=== PATIENT | female | born 1995 | race American Indian/Alaskan Native ===

== ENCOUNTER 2018-11-10 10:31 | Day surgery (SDC) | payer BC, OTHER ==
[2018-11-10] MEDS ORDERED: LACTATED RINGERS 1,000 ML ONE (11:47)
[2018-11-10 11:54] LABS: Hematocrit 22.8 % (30.3-42.9); Hemoglobin 7.3 gm/dl (10.1-14.3)
[2018-11-10] MEDS ORDERED: LACTATED RINGERS 1,000 ML IV SCH (12:00)
--- NOTE | 2018-11-10 12:20 | Anesthesia Consultation ---
Anesthesia Consult and Med Hx Date of service: 11/10/18 - Airway Anesthetic Teeth Evaluation: Good ROM Head & Neck: Adequate Mental/Hyoid Distance: Adequate Mallampati Class: Class II Intubation Access Assessment: Good - Pulmonary Exam CTA: Yes - Cardiac Exam Cardiac Exam: RRR - Pre-Operative Health Status ASA Pre-Surgery Classification: ASA2 Proposed Anesthetic Plan: General (Patient with Hb of 7.3 D/W Dr Cheatham - will type and screen and decide on transfusion PRN) - Central Nervous System Hx Psychiatric Problems: No - Hematic Hx Anemia: Yes - Other Systems Hx Alcohol Use: Yes (Occas) Hx Cancer: No
[2018-11-10] MEDS ORDERED: DILAUDID IV PRN (12:21)
[2018-11-10] MEDS ORDERED: ZOFRAN IV PRN (12:21)
--- NOTE | 2018-11-10 12:21 | Anesthesia Day of Surgery ---
Anesthesia Day of Surgery - Day of Surgery Patient Examined: Yes Patient H&P Reviewed: Yes Patient is NPO: Yes
--- NOTE | 2018-11-10 12:38 | Short Stay Summary ---
Short Stay Documentation Date of service: 11/10/18 Narrative H&P: 22y/o s/p an elective termination of presents with vaginal bleeding and cramping. Pelvic ultrasound demonstrated findings of a thickened endometrium consistent with retained products. - History Principal diagnosis: Retained products of conception Past Medical History: No medical history Past Surgical History: tonsillectomy Social history: single - Allergies and Medications Current Medications: Allergies No Known Allergies Allergy (Unverified 11/09/18 15:14) Home Medications Medication Instructions Recorded Confirmed Last Taken Type No Known Home Medications [No 11/09/18 11/09/18 Unknown History Reported Home Medications] Active Medications Hydromorphone HCl (Dilaudid) 0.25 mg IV Q10MIN PRN PRN Reason: Pain, Moderate (4-6) Stop: 11/10/18 23:00 Lactated Ringer's (Lactated Ringers) 1,000 mls @ 75 mls/hr IV DIRECT PHAM Last Admin: 11/10/18 12:00 Dose: 75 mls/hr Documented by: Ondansetron HCl (Zofran) 4 mg IV ONCE PRN PRN Reason: Nausea And Vomiting - Physical exam General appearance: no acute distress Integumentary: no rash HEENT: Atraumatic Lungs: Clear to auscultation Breasts: deferred Heart: Regular rate Gastrointestinal: normal Female Genitourinary: deferred Rectal Exam: deferred Extremities: no ischemia - Brief post op/procedure progress note Date of procedure: 11/10/18 Pre-op diagnosis: retained products of conception Post-op diagnosis: same Procedure: Suction dilatation and curettage under ultrasound guidance Anesthesia: GETA Surgeon: ALEISHA ARORA Estimated blood loss: 50-100ml Pathology: list (products of conception) Specimen disposition: to lab Condition: stable - Hospital course Hospital course: The patient was admitted at the day of surgery and underwent a suction dilatation and curettage under ultrasound guidance for retained products of conception. Please see operative note for details of surgery. Postoperative course was uneventful. - Disposition Condition at discharge: Good Disposition: DC-[id number] TO HOME OR SELFCARE Short Stay Discharge Plan Activity: other (pelvic rest for 1 week) Diet: regular Additional Instructions: Scheduled follow-up with Dr. Meyers in 2 weeks Prescriptions: Ibuprofen [Motrin] 800 mg PO Q8HR PRN #60 tablet PRN Reason: Pain, Mild (1-3) HYDROcodone/APAP 5-325 [[place] 5/325] 1 each PO Q6HR PRN #20 tablet PRN Reason: Pain
[2018-11-10] MEDS ORDERED: SILVER NITRATE TP ONE (12:59)
[2018-11-10] MEDS ORDERED: ANCEF/STERILE WATER 2 GM/20 ML 2 GM/20 ML SYRINGE IV NR (13:00)
[2018-11-10] MEDS ORDERED: SUBLIMAZE ONE (13:10)
[2018-11-10] MEDS ORDERED: DIPRIVAN 10 MG/ML IV ONE (13:10)
[2018-11-10] MEDS ORDERED: XYLOCAINE MPF 2% ONE (13:11)
[2018-11-10] MEDS ORDERED: METHERGINE IM ONE (13:36)
[2018-11-10] MEDS ORDERED: ZOFRAN ONE (13:39)
[2018-11-10] MEDS ORDERED: TORADOL ONE (13:39)
[2018-11-10] MEDS ORDERED: NACL 0.9% IR ONE (13:40)
--- NOTE | 2018-11-10 13:46 | Operative Report ---
Operative Report Operative Report: Date of surgery: 11/10/2018 Preoperative diagnosis: Retained products of conception; abnormal uterine bleeding Postoperative diagnosis: Same as above Procedure: Suction dilatation and curettage under ultrasound guidance Surgeon: Mishel Meyers M.D. Anesthesia: Gen. endotracheal anesthesia Estimated blood loss: 100 mL Findings: Retained products of conception Indication: 22-year-old who is status post elective termination of . The patient reported continued vaginal bleeding after procedure. An ultrasound demonstrated findings of heterogeneous material in the endometrial cavity consistent with retained products of conception. Procedure: The patient was taken to the operating room and given general endotracheal anesthesia without complication. The patient is prepped and draped in a normal sterile fashion. A bivalve speculum was placed in the patient's vagina and a single-tooth tenaculums placed on the anterior lip of the cervix. The uterine cavity was then sounded. The cervical os was then dilated with graduated dilators. An ultrasound was performed prior to placement of the cannula. There was still evidence of retained products at the fundus of the uterus. A number 8 [place] curved cannula was placed to suction and found to be adequate. The cannula was then gently inserted into the dilated cervical os. Evacuation of the uterine contents were performed. Sharp curettage and endometrial surface was performed until cry was achieved. Ultrasound was re peated and demonstrated removal of the retained products. The cannula was then gently reinserted into the uterine cavity to evacuate any additional contents. After removal of the cannula there was no evidence of any active bleeding. The vaginal instruments were then removed atraumatically. The patient was then successfully extubated and taken to the recovery room in stable condition. All sponge laps and needle counts were correct 2. Pathology consisted of products of conception.
--- NOTE | 2018-11-10 14:11 | Ultrasound Report ---
ULTRASOUND GUIDE INTRAOPERATIVE HISTORY: Retained products of conception FINDINGS: Ultrasound guidance was provided by radiology during D and C by obstetrics and gynecology. 4 transabd ominal grayscale ultrasound images are presented. The uterus is anteverted and measures 6.3 x 3.9 x 5 .6 cm. On the presurgical images the endometrial stripe measures 2 cm in thickness. Post D and C, the endometrium measures 0.7 cm in thickness. There is no evidence for uterine mass or pelvic fluid denis ection. IMPRESSION: Successful ultrasound guidance for dilatation and curettage. The endometrium measures 0.7 cm after th e procedure. Signer Name: Jose De Jesus Olivier Jr, MD Signed: 11/10/2018 2:06 PM Workstation Name: [id number]
[2018-11-10 14:47] VITALS: BP 111/75
--- NOTE | 2018-11-10 19:50 | Post Anesthesia Evaluation ---
- Post Anesthesia Evaluation Patient Participated: Yes Airway Patent: Yes Stable Respiratory Function: Yes Nausea/Vomiting: No Temp > 96.8F: Yes Pain Manageable: Yes Adequeate Hydration: Yes Anesthesia Complications: No Block Receding Appropriately: Not Applicable Patient on Ventilator: No
== END 2018-11-10 15:15 | disposition home or self-care (01) ==
LOC: OR 10:31
PROVIDERS: ATTEND Obstetrics & Gynecology
DX: O03.4 Incomplete spontaneous abortion without complication (principal); O02.89 Other abnormal products of conception; Z79.899 Other long term (current) drug therapy; Z98.890 Other specified postprocedural states; Z72.89 Other problems related to lifestyle; Z86.2 Personal history of diseases of the blood and blood-forming organs and certain disorders involving the immune mechanism
CPT/HCPCS: 36415; 59812; 76998; 85014; 85018; 86850; 86900; 86901; 88305; J0690; J1885; J2210; J2405; J2704; J3010; J7120